=== PATIENT | female | born 1960 | race Caucasian/White ===

== ENCOUNTER 2021-06-15 13:26 | Emergency (ER) | payer OTHER ==
[~2021-06-15] VITALS: Ht 165.1 cm; Wt 66.8 kg
[2021-06-15] MEDS ORDERED: ACETAMINOPHEN TAB 650MG DOSE (2X325MG) PO ONE (13:40)
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
[2021-06-15 16:48] VITALS: BP 181/88
== END 2021-06-15 16:49 | disposition home or self-care (01) ==
LOC: EDBD 13:26 → M ED 13:26
DX: S42.001A Fracture of unspecified part of right clavicle, initial encounter for closed fracture (principal); S42.111A Displaced fracture of body of scapula, right shoulder, initial encounter for closed fracture; S01.01XA Laceration without foreign body of scalp, initial encounter; V43.52XA Car driver injured in collision with other type car in traffic accident, initial encounter; Y92.9 Unspecified place or not applicable; Y93.9 Activity, unspecified; Y99.9 Unspecified external cause status

== ENCOUNTER → 2021-06-27 | Outpatient (CLI) | payer OTHER ==
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
== END ==
LOC: M RAD 16:46
PROVIDERS: ATTEND Orthopaedic Surgery Sports Medicine
DX: S42.141A Displaced fracture of glenoid cavity of scapula, right shoulder, initial encounter for closed fracture (principal); W18.30XA Fall on same level, unspecified, initial encounter; Y92.009 Unspecified place in unspecified non-institutional (private) residence as the place of occurrence of the external cause

== ENCOUNTER 2021-07-19 14:59 | Outpatient (RCR) | payer OTHER | END 2021-07-30 | LOC: M PT 14:59 | PROVIDERS: ATTEND Orthopaedic Surgery Sports Medicine | DX: S42.111D Displaced fracture of body of scapula, right shoulder, subsequent encounter for fracture with routine healing (principal); S42.021D Displaced fracture of shaft of right clavicle, subsequent encounter for fracture with routine healing ==

== ENCOUNTER 2021-08-18 14:15 | Outpatient (RCR) | payer OTHER | END 2021-08-29 | LOC: M PT 14:15 | PROVIDERS: ATTEND Orthopaedic Surgery Sports Medicine | DX: S42.111D Displaced fracture of body of scapula, right shoulder, subsequent encounter for fracture with routine healing (principal); S42.021D Displaced fracture of shaft of right clavicle, subsequent encounter for fracture with routine healing ==

== ENCOUNTER 2021-09-27 08:30 | Outpatient (RCR) | payer OTHER | END 2021-09-29 | LOC: M PT 08:30 | PROVIDERS: ATTEND Orthopaedic Surgery Sports Medicine | DX: S42.111D Displaced fracture of body of scapula, right shoulder, subsequent encounter for fracture with routine healing (principal); S42.021D Displaced fracture of shaft of right clavicle, subsequent encounter for fracture with routine healing ==

== ENCOUNTER 2021-10-25 12:39 | Outpatient (RCR) | payer OTHER | END 2021-10-30 | LOC: M PT 12:39 | PROVIDERS: ATTEND Orthopaedic Surgery Sports Medicine | DX: S42.001A Fracture of unspecified part of right clavicle, initial encounter for closed fracture (principal) ==

== ENCOUNTER 2021-11-15 09:59 | Outpatient (RCR) | payer OTHER | END 2021-11-27 | LOC: M PT 09:59 | PROVIDERS: ATTEND Orthopaedic Surgery Sports Medicine | DX: S42.001D Fracture of unspecified part of right clavicle, subsequent encounter for fracture with routine healing (principal); W18.30XD Fall on same level, unspecified, subsequent encounter ==

== ENCOUNTER 2021-11-30 09:55 | Outpatient (RCR) | payer OTHER | END 2021-12-28 | LOC: M PT 09:55 | PROVIDERS: ATTEND Orthopaedic Surgery Sports Medicine | DX: S42.111D Displaced fracture of body of scapula, right shoulder, subsequent encounter for fracture with routine healing (principal); S42.021D Displaced fracture of shaft of right clavicle, subsequent encounter for fracture with routine healing ==

== ENCOUNTER → 2023-11-21 | Outpatient (CLI) | payer BC | LOC: M RAD 11:27 | PROVIDERS: ATTEND Internal Medicine | DX: I65.29 Occlusion and stenosis of unspecified carotid artery (principal) ==

== ENCOUNTER → 2023-12-27 | Outpatient (CLI) | payer BC | LOC: M RAD 13:35 | PROVIDERS: ATTEND Internal Medicine | DX: Z87.891 Personal history of nicotine dependence (principal) ==

== ENCOUNTER 2024-02-24 14:27 | Inpatient (IN) | payer MEDICARE, BC ==
[~2024-02-24] VITALS: Ht 165.1 cm; Wt 58.5 kg
[2024-02-24] MEDS ORDERED: CLOP75TA2 PO (14:37)
[2024-02-24] MEDS ORDERED: VALE500C2 PO (14:37)
[2024-02-24] MEDS ORDERED: NORV5TAB PO (14:37)
[2024-02-24] MEDS ORDERED: ATOR1TAB21 PO (14:37)
[2024-02-24] MEDS ORDERED: TREL1AER PO (14:37)
[2024-02-24 16:20] LABS: BASO # 0.1 10^3/uL (0.0-0.2); BASO % 0.5 % (0.0-1.0); EOS % 0.3 % (0.0-3.0); HEMATOCRIT 46.6 % (36.0-47.0); HEMOGLOBIN 15.8 g/dl (12.0-15.5); LYMPH # 1.3 10^3/uL (1.5-5.0); LYMPH % 13.6 % (24.0-44.0); MEAN CORPUSCULAR HGB CONC 33.9 g/dl (32.0-36.5); MEAN CORPUSCULAR VOLUME 94.3 fl (80.0-96.0); MONO # 0.4 10^3/uL (0.0-0.8); MONO % 4.4 % (2.0-8.0); NEUTROPHILS # 7.7 10^3/uL (1.5-8.5); NEUTROPHILS % 80.8 % (36.0-66.0); PLATELET COUNT, AUTOMATED 298 10^3/uL (150-450); RED BLOOD COUNT 4.94 10^6/uL (4.00-5.40); WHITE BLOOD COUNT 9.5 10^3/uL (4.0-10.0)
[2024-02-24] MEDS: NS 1,000 ML IV ONE (16:28)
[2024-02-24 16:46] LABS: CK-MB VALUE MASS < 1.0 NG/ML (<3.6)
[2024-02-24 16:47] LABS: C REACTIVE PROTEIN QUANTITATIV < 0.40 MG/DL (<1.0)
[2024-02-24 16:48] LABS: ALKALINE PHOSPHATASE 121 U/L (46-116); ALT/SGPT 17 U/L (7.0-40); AST/SGOT 14 U/L (<34); BILIRUBIN,DIRECT 0.1 MG/DL (<0.4); BILIRUBIN,TOTAL 0.4 MG/DL (0.3-1.2); BLOOD UREA NITROGEN 21 MG/DL (9-23); CALCIUM LEVEL 9.4 MG/DL (8.3-10.6); CARBON DIOXIDE LEVEL 25 MMOL/L (20-31); CHLORIDE LEVEL 108 MMOL/L (98-107); CPK CREATINE PHOSPHOKINASE 56 U/L (34-145); CREATININE FOR GFR 0.65 MG/DL (0.55-1.30); GLOMERULAR FILTRATION RATE > 60.0 (>45); GLUCOSE, FASTING 269 MG/DL (74-106); MAGNESIUM LEVEL 2.1 MG/DL (1.8-2.4); MB/CK RELATIVE INDEX 1.78 (< OR =4); POTASSIUM SERUM 3.7 MMOL/L (3.5-5.1); SODIUM LEVEL 139 MMOL/L (136-145); TOTAL PROTEIN 7.4 G/DL (5.7-8.2)
[2024-02-24 16:55] LABS: PROCALCITONIN <0.04 ng/ml
[2024-02-24 19:34] VITALS: BP 184/73
[2024-02-24] MEDS: ASPIRIN 81MG CHEW TABLET PO ONE (19:34)
[2024-02-24] MEDS: ATORVASTATIN 20 MG TAB PO ONE (21:06)
[2024-02-24] MEDS ORDERED: TREL1AER INH (21:31)
[2024-02-24] MEDS ORDERED: HOME MED LIST COMPLETE! XX SCH (21:35)
[2024-02-24] MEDS ORDERED: ISOVUE-370 76% 100ML VIAL As Ordered ONE (21:35)
[2024-02-24 21:48] LABS: CHOLESTEROL LEVEL 154 MG/DL (<200); CHOLESTEROL RISK RATIO 3.62 (<5); HDL CHOLESTEROL 42.5 MG/DL (>40); LDL CHOLESTEROL 80.9 MG/DL (<100); NON-HDL-C 111.5 MG/DL; TRIGLYCERIDES LEVEL 153 MG/DL (<150)
[2024-02-24 21:52] LABS: HEMOGLOBIN A1c 5.4 % (4.0-6.0)
[2024-02-24] MEDS ORDERED: MAALOX 30 ML SUSP *UDC PO PRN (22:25)
[2024-02-24] MEDS ORDERED: MOM 30ML SUSPENSION UDC PO PRN (22:25)
[2024-02-24] MEDS ORDERED: ACETAMINOPHEN TAB 650MG DOSE (2X325MG) PO PRN (22:25)
[2024-02-24] MEDS ORDERED: ALBUTEROL 90 MCG/ACT 8GM HFA INHALER INH PRN (22:25)
[2024-02-24 23:40] VITALS: BP 163/80; TEMP 97.6; O2SAT 96
[2024-02-24] MEDS ORDERED: NICOTINE 14 MG/24 HR TRANSDERMAL TD PRN (23:40)
[2024-02-25] VITALS (22 sets, daily range): BP systolic 111–158; BP diastolic 58–76; TEMP 97.1–98.6; O2SAT 94–98
[2024-02-25 05:57] LABS: HEMATOCRIT 43.5 % (36.0-47.0); HEMOGLOBIN 14.8 g/dl (12.0-15.5); MEAN CORPUSCULAR HEMOGLOBIN 31.9 pg (27.0-33.0); MEAN CORPUSCULAR VOLUME 93.8 fl (80.0-96.0); PLATELET COUNT, AUTOMATED 271 10^3/uL (150-450); RED BLOOD COUNT 4.64 10^6/uL (4.00-5.40); WHITE BLOOD COUNT 8.6 10^3/uL (4.0-10.0)
[2024-02-25] MEDS: HEPARIN SOD (PORCINE) 5000UNITS/ML 1ML VIAL/SYRINGE SC SCH (06:04)
[2024-02-25 06:22] LABS: ALBUMIN 3.4 G/DL (3.2-5.2); ALKALINE PHOSPHATASE 95 U/L (46-116); ALT/SGPT 13 U/L (7.0-40); AST/SGOT 12 U/L (<34); BILIRUBIN,TOTAL 0.5 MG/DL (0.3-1.2); BLOOD UREA NITROGEN 12 MG/DL (9-23); CARBON DIOXIDE LEVEL 26 MMOL/L (20-31); CHLORIDE LEVEL 109 MMOL/L (98-107); CREATININE FOR GFR 0.53 MG/DL (0.55-1.30); GLOMERULAR FILTRATION RATE > 60.0 (>45); GLUCOSE, FASTING 93 MG/DL (74-106); POTASSIUM SERUM 3.6 MMOL/L (3.5-5.1); SODIUM LEVEL 141 MMOL/L (136-145); TOTAL PROTEIN 6.1 G/DL (5.7-8.2)
[2024-02-25] MEDS: DOCUSATE SODIUM 100MG CAPSULE PO SCH (09:00)
[2024-02-25] MEDS ORDERED: ENTER DRUG NAME HERE (PATIENT'S OWN MED) INH SCH (09:00)
[2024-02-25] MEDS: CLOPIDOGREL 75 MG TAB PO SCH (09:15)
[2024-02-25] MEDS: ATORVASTATIN 20 MG TAB PO SCH ×2 (09:15→20:12)
[2024-02-25] MEDS: ASPIRIN 81MG ENTERIC TABLET PO SCH (09:15)
[2024-02-25] MEDS: TIOTROPIUM INHALER/CAPSULE (SPIRIVA) INH SCH (09:45)
[2024-02-25] MEDS: SYMBICORT 160/4.5MCG INHALER 6GM INH SCH (09:45)
[2024-02-25] MEDS: SODIUM CHLORIDE 0.9% 1000ML IV ONE ×2 (11:27→11:45)
[2024-02-25] MEDS: NS 1,000 ML IV ONE (20:12)
[2024-02-26 03:55] VITALS: BP 135/60; TEMP 97.8; O2SAT 98
[2024-02-26 07:15] VITALS: BP 130/66; TEMP 97.3; O2SAT 97
[2024-02-26] MEDS ORDERED: ASPI81TAEC PO (08:06)
[2024-02-26] MEDS ORDERED: NICO14PA TD (08:06)
[2024-02-26] MEDS ORDERED: ATOR40TA75 PO (08:06)
[2024-02-26] MEDS ORDERED: NORV5TAB PO (08:08)
[2024-02-26] MEDS ORDERED: SELF1KIT MC (08:08)
== END 2024-02-26 13:21 | disposition home or self-care (01) | DRG 66 ==
LOC: M ED 14:27 → M ED INP 22:21 → M PCU 23:36
PROVIDERS: ADMIT Internal Medicine; ATTEND General Practice
PROC: B246ZZZ Ultrasonography of Right and Left Heart (ICD-10-PCS; principal; 2024-02-26)
DX: I63.81 Other cerebral infarction due to occlusion or stenosis of small artery (principal); I10 Essential (primary) hypertension; E78.5 Hyperlipidemia, unspecified; J44.9 Chronic obstructive pulmonary disease, unspecified; I73.9 Peripheral vascular disease, unspecified; I65.23 Occlusion and stenosis of bilateral carotid arteries; I35.0 Nonrheumatic aortic (valve) stenosis; F17.200 Nicotine dependence, unspecified, uncomplicated; R81 Glycosuria; Z79.02 Long term (current) use of antithrombotics/antiplatelets; Z79.899 Other long term (current) drug therapy; I67.82 Cerebral ischemia

== ENCOUNTER → 2024-05-01 | Outpatient (CLI) | payer BC, MEDICARE ==
[~2024-05-01] MED LIST: ASPI81TAEC PO; ATOR1TAB21 PO; ATOR40TA75 PO; CLOP75TA2 PO; NICO14PA TD; NORV5TAB PO; SELF1KIT MC; TREL1AER INH; TREL1AER PO; VALE500C2 PO
[2024-05-01 08:18] LABS: BLOOD UREA NITROGEN 19 MG/DL (9-23); CREATININE FOR GFR 0.66 MG/DL (0.55-1.30); GLOMERULAR FILTRATION RATE > 60.0 (>45)
== END ==
LOC: M LAB 07:18
PROVIDERS: ATTEND Psychiatry & Neurology Neurology
DX: I10 Essential (primary) hypertension (principal)

== ENCOUNTER 2025-07-14 07:08 | Day surgery (SDC) | payer BC, MEDICARE ==
[~2025-07-14] VITALS: Ht 160 cm; Wt 57.6 kg
[~2025-07-14 07:08] MED LIST changes: +AMLO1TAB24 PO; +ECOT81TA5 PO; +ERGO500029 PO; +METO1TAB87 PO; +TRAZ1TAB10 PO
[2025-07-14] MEDS ORDERED: LIDOCAINE 2% 100 MG/5 ML SDV (FOR ANES.) As Ordered ONE (08:26)
[2025-07-14 08:47] VITALS: TEMP 97.9
[2025-07-14 09:05] VITALS: BP 131/61; O2SAT 98
== END 2025-07-14 09:08 | disposition home or self-care (01) ==
LOC: M OPP 07:08
PROVIDERS: ATTEND Surgery
DX: Z12.11 Encounter for screening for malignant neoplasm of colon (principal); R19.5 Other fecal abnormalities; K63.5 Polyp of colon; K57.30 Diverticulosis of large intestine without perforation or abscess without bleeding; K64.8 Other hemorrhoids; Z79.82 Long term (current) use of aspirin; Z79.51 Long term (current) use of inhaled steroids; Z79.899 Other long term (current) drug therapy; J44.9 Chronic obstructive pulmonary disease, unspecified